=== PATIENT | male | born 1980 | race Caucasian/White ===

== ENCOUNTER → 2016-09-03 | Outpatient (CLI) | payer OTHER ==
[~2016-09-03] MED LIST: HYDROCODON-ACE1 EAC9 PO; METHADONE PO; METHADOSE PO; NEXIUM PO; NO MEDICATIONS
--- NOTE | ~2016-09-03 | CT2 ---
[facility] A Service of [facility] & [facility] RADIOLOGY TEXT RESULTS PATIENT: JACINDA PEREZ [facility] : 78 UNIT #: [id number] AGE: [address]: Stevie Julio MD SEX: M ORDER DR: [id number] [facility]. [place], [place] [address] [id number] O MR#: [id number] Acc #: [id number] NAME: JACINDA PEREZ : 1980 SEX: M STUDY DATE/TIME: 09/03/2016 9:44 UNIT: [facility]AT ROOM: STUDY DESCRIPTION: CT Abd and Pelv W Cont Attending Physician: Stevie Julio Jr., M.D. Referring Physician: Stevie Julio Jr., M.D. Ordering Physician: Stevie Julio Jr., M.D. Primary Care Physician: [facility] MEDICAL IMAGING REPORT This report is preliminary unless electronic signature is present EXAM CT abdomen and pelvis INDICATIONS Left lower quadrant abdominal pain and diarrhea. Melena. Prior left inguinal hernia repair. TECHNIQUE CT abdomen and pelvis with p.o. and IV contrast (100 mL Isovue-370 IV contrast). Coronal and sagittal reconstructions were obtained. This CT exam was performed with one or more of the following radiation dose reduction techniques: automatic exposure control, adjustment of mA and/or kV according to patient size, and iterative reconstruction. COMPARISON CT abdomen and pelvis dated 12/17/2015. FINDINGS Abdomen: The liver enhances normally. There is mild extrahepatic biliary dilatation measuring up 0.8 cm. This is fairly similar to the patient's prior study. There is tapering of the common bile duct to the level of the ampulla. The gallbladder is not distended. The pancreas enhances normal. Pancreatic duct is not dilated. The spleen, adrenal glands, and kidneys are within normal limits. The bowel is not dilated. There is no enlarged retroperitoneal or mesenteric lymph nodes. The appendix is normal. The abdominal aorta is normal in caliber. Pelvis: There has been prior bilateral inguinal hernia repair. No enlarged pelvic or inguinal lymph nodes. Bladder is unremarkable. STS. [facility] A Service of [facility] & [facility] RADIOLOGY TEXT RESULTS PATIENT: JACINDA PEREZ LOCATION: [facility] : 78 UNIT #: [id number] AGE: [address]: Stevie Juloi MD SEX: M ORDER DR: No acute osseous abnormalities. IMPRESSION 1. Borderline enlargement of the common bile duct. The common bile duct tapers to normal caliber by the pancreatic head/ampulla. No distal obstructing mass or lesions identified. Would recommend correlation with the liver function test. If there is abnormal liver function tests or evidence of biliary obstruction, consider further evaluation with ERCP/MRCP. 2. Otherwise, there is no acute findings. Dictated by... Mian Crandall M.D. THIS IS AN ELECTRONICALLY VERIFIED REPORT Mian Crandall M.D. at 09/04/2016 3:09 PM Ani TD: 09/04/2016 09:42 JOB #: [id number] MEDICAL IMAGING REPORT Page 1 of 1 COPY
== END | disposition home or self-care (01) ==
LOC: CCAT 08:14
DX: R10.32 Left lower quadrant pain (principal); R19.7 Diarrhea, unspecified; N53.12 Painful ejaculation; K92.1 Melena; G89.18 Other acute postprocedural pain; K83.8 Other specified diseases of biliary tract
CPT/HCPCS: 74177; Q9967

== ENCOUNTER → 2016-09-23 | Outpatient (CLI) | payer OTHER ==
[2016-09-23 15:00] LABS: ALBUMIN SERUM 3.7 g/dL (3.5-5.0); BILIRUBIN,TOTAL 0.5 mg/dL (0.2-2.0); GLOM FILT RATE Estimated 95.7 mL/min (>60); POTASSIUM 4.4 mmol/L (3.5-5.1); PROTEIN TOTAL SERUM 6.1 g/dL (6.0-8.3)
== END | disposition home or self-care (01) ==
LOC: CLAB 13:17
PROVIDERS: Surgery
DX: K83.8 Other specified diseases of biliary tract (principal)
CPT/HCPCS: 36415; 80053